=== PATIENT | female | born 1950 | race African-American/Black ===

== ENCOUNTER → 2017-08-08 | Outpatient (CLI) | payer BC ==
[2014-10-16 10:26] VITALS: BP 142/77
[~2017-08-08] MED LIST: Doxycycline Hyclate PO; LEVO750T31 PO
--- NOTE | 2017-08-08 15:47 | RAD ---
CT ABDOMEN AND PELVIS WITHOUT IV CONTRAST History: Left lower quadrant pain, tenderness, concern for acute diverticulitis Comparison: None. Technique: Helical CT of the abdomen and pelvis was performed from the lung bases through the ischial tuberosities. Axial and coronal reconstructions were obtained. Abdomen Findings: Linear opacities in the lingula and bilateral lower lobes likely related to atelectasis or scarring. Incompletely visualized 0.5 cm right lower lobe nodule (image 1, series 2). Evaluation of visceral organs is limited without intravenous contrast. The liver, spleen, pancreas, gallbladder, and bilateral adrenal glands are normal. 0.7 cm partially exophytic hyperattenuating lesion off the superior pole of the left kidney. Subcentimeter hypoattenuating lesion within the interpolar region of the left kidney is too small to characterize but statistically likely represents a simple hepatic cyst. Punctate nonobstructive left renal calculus versus vascular calcification. There is no hydronephrosis. Visualized loops of large and small bowel are normal. There is no evidence of bowel obstruction. Appendix appears within normal limits. Several prominent abdominal lymph nodes which do not meet CT criteria for enlargement. The abdominal aorta is normal in caliber. Pelvis findings: Normal uterus and ovaries. Urinary bladder is normal. There is no free fluid. Several prominent pelvic lymph nodes, for instance in the right iliac chain there is a 0.9 cm right iliac chain lymph node (image 67, series 2). There is no acute bony abnormality. Mild multilevel degenerative changes of the visualized spine. Small to moderate sized fat-containing umbilical hernia. IMPRESSION: 1. No acute intra-abdominal or intrapelvic process. 2. 0.7 cm partially exophytic hyperattenuating lesion off the superior pole of the left kidney most likely relates to hemorrhagic or proteinaceous cyst. Cystic nature could be confirmed with ultrasound. 3. Incompletely visualized 0.5 cm right lower lobe indeterminate pulmonary nodule. Following Fleischner criteria below, if patient is of low risk, recommend follow-up dedicated CT chest in 12 months. If patient is of high risk, recommend follow-up CT chest in 6-12 months. 4. Several nonspecific prominent abdominal and pelvic lymph nodes which do not meet CT criteria for enlargement. Nodules detected incidentally at non-screening CT Nodule size (mm) less than or equal to 4 Low Risk patients- no follow-up needed High Risk patients- follow-up at 12 months and if no change, no further imaging needed. Nodule size > 4-6 mm Low risk patients- follow- up at 12 months and if no change, no further imaging needed High risk patients- initial follow-up CT at 6-12 months and then at 18-24 months if no change. Nodule Size > 6-8 mm Low risk patients- initial follow-up CT at 6-12 months and then at 18-24 months if no change. High risk patients- initial follow- up CT at 3-6 months and then at 9-12 months if no change, Nodule Size >8 mm Either low or high risk patients: Follow-up CT at around 3, 9 and 24 [address], PET, and/or biopsy Note: newly detected indeterminate nodule in person 35 years of age or older. Low risk patients- minimal or absent history of smoking and/or other known risk factors. High risk patients- history of smoking or of other known risk factors. PQRS Compliance Statement: One or more of the following individualized dose reduction techniques were utilized for this examination: 1. Automated exposure control 2. Adjustment of the mA and/or kV according to patient size 3. Use of iterative reconstruction technique
== END | disposition home or self-care (01) ==
LOC: CT 12:31
PROVIDERS: ATTEND Internal Medicine
DX: R10.32 Left lower quadrant pain (principal)
CPT/HCPCS: 74176

== ENCOUNTER → 2017-08-09 | Outpatient (CLI) | payer BC ==
[2014-10-16 10:26] VITALS: BP 142/77
--- NOTE | 2017-08-09 16:19 | RAD ---
Ultrasound renal Indication: Abnormal CT scan with left renal lesion. Technique: Grayscale, color Doppler and spectral waveform ultrasound images of the kidneys obtained. Comparison: CT from 08/08/2017 Findings: The right kidney measures 11.0 x 4.0 x 4.0 cm without hydronephrosis. The left kidney measures 11.2 x 4.2 x 4.0 cm without hydronephrosis. The lesion seen on CT is not visualized on the ultrasound due to its deep location. Bladder is distended without focal lesion. Impression: Nonvisualization of left upper pole renal lesion on ultrasound due to its deep location. The lesion on CT demonstrates high attenuation likely from partial calcification or from proteinaceous debris/hemorrhagic products. Follow-up CT abdomen in 4-6 months is recommended without and with IV contrast for follow-up.
== END | disposition home or self-care (01) ==
LOC: US 14:05
PROVIDERS: ATTEND Internal Medicine
DX: N28.9 Disorder of kidney and ureter, unspecified (principal)
CPT/HCPCS: 76770